=== PATIENT | male | born 1975 | race Two or more races ===

== ENCOUNTER 2016-10-12 23:24 | Emergency (ER) | payer BC ==
--- NOTE | ~2016-10-12 | ER ---
[facility] AGE: 41 Y [address] ROOM: [place] [address] LOCATION: [facility] ADMIT DATE: 10/12/2016 ER/Outpatient Report DISCHARGE DATE: 10/12/2016 FAMILY PHYSICIAN: Physician, Unknown ATTENDING PHYSICIAN: Doug Shearer Admission date and time are documented in the medical record. I saw the patient at 2340 hours. CHIEF COMPLAINT: Cough, intermittent fever. HISTORY OF PRESENT ILLNESS: The patient is a 41-year-old male who has had a 2-day history of cough. Cough is nonproductive. He has some discomfort with deep inspiration especially when coughing. He has had intermittent fever with chills. No rigors. No eyes, ears, nose, throat, neck, or spine pain. No headache. No dizziness, lightheadedness, syncope, or near syncope. No fall or trauma. No abdominal pain, nausea, vomiting, or diarrhea. No urinary frequency, urgency, or dysuria. No joint muscle swelling, redness, or pain. No skin eruptions or rash. No history of neuro changes, psych issues, or endocrine problems. HOME MEDICATIONS: None. ALLERGIES: NONE. SOCIAL HISTORY: The patient smokes a half to pack of cigarettes a day and nondrinker. SIGNIFICANT PAST MEDICAL HISTORY: Bronchitis, questionable asthma, and tobacco abuse. OPERATIONS: None. REVIEW OF SYSTEMS: All systems reviewed by me are negative with the exception of those discussed in the history of present illness. PHYSICAL EXAMINATION: VITAL SIGNS: Temperature 97.4 tympanic, pulse 94, respirations 20, blood pressure 135/84, and O2 sat on room air is 98%. HEAD: Normocephalic. [facility] AGE: 41 Y [address] ROOM: [place] [address] LOCATION: [facility] ADMIT DATE: 10/12/2016 ER/Outpatient Report DISCHARGE DATE: 10/12/2016 FAMILY PHYSICIAN: Physician, Unknown ATTENDING PHYSICIAN: Doug Shearer EYES, EARS, NOSE, THROAT: Clear. Mucous membranes moist. NECK: No nuchal rigidity. No thyromegaly or cervical adenopathy. LUNGS: Clear. Good airflow. No rales, rhonchi, or wheezes. Coarse dry cough. HEART: Regular. Pulses palpable. ABDOMEN: Soft, nontender. Good bowel tones. EXTREMITIES: Intact. NEUROVASCULAR: Intact. SKIN: Clear. IMPRESSION: Bronchitis. PLAN: The patient is dismissed home. Observation. Activity as tolerated. Fluids, diet as tolerated. Z-Christian take as directed. Mucinex D 600 mg 2 orally 2 times a day for 10 days. Albuterol oral inhaler with AeroChamber 2 puffs 4 times a day and as needed. Follow up with personal physician as needed. Discussion ensued with the patient concerning my findings and recommendations, he understands. MD BETSY GARCIA/christen /[id number] d: 10/13/16 0329 t: 10/13/16 1826, OUTPATIENT REPORT
== END 2016-10-12 23:58 | disposition disaster alternative care site (69) ==
LOC: GMED 23:24
DX: J40 Bronchitis, not specified as acute or chronic (principal); F17.210 Nicotine dependence, cigarettes, uncomplicated